=== PATIENT | female | born 2000 | race African-American/Black ===

== ENCOUNTER 2022-11-12 13:11 | Emergency (ER) | payer SELFPAY ==
[2022-11-12] MEDS ORDERED: Ondansetron ODT 4 MG TAB ONE (13:57)
[2022-11-12 14:48] LABS: Bilirubin Neg (Negative); Blood, Urine 250 (Negative); Clarity Clear (Clear); Glucose, Urine (Dipstick) Normal (Negative); Ketone, Urine Negative (Negative); Leukocyte 25 (Negative); Nitrite Negative (Negative); Protein, Urine (Dipstick) 30 mg/dl (Neg-Trace); Specific Gravity, Urine 1.025 (1.005-1.030); Urobilinogen Normal mg/dL (Less than 2)
[2022-11-12 14:52] LABS: Pregnancy Test - Urine (BHCG) Negative (Negative); Pregu Control Background? CLEAR/WHITE (CLR/WHITE); Pregu Control Bar Appear? YES (CONTROL BAR); Specific Gravity 1.025 (1.002-1.036)
[2022-11-12 15:12] LABS: Bacteria/HPF None Seen HPF (None Seen); CAUTI Indications for Culture Pelvic or flank pain; Squamous Epithelial 0-3 HPF (0-3); Urine Culture Reflex No No; WBC/HPF 0-3 HPF (0-3)
== END 2022-11-12 15:35 | disposition home or self-care (01) ==
LOC: CSHERS 13:11
DX: B34.9 Viral infection, unspecified (principal); R11.2 Nausea with vomiting, unspecified
CPT/HCPCS: 81001; 81025; 99284; Q0162